=== PATIENT | male | born 1945 | race African-American/Black ===

== ENCOUNTER 2021-05-05 09:11 | Emergency (ER) | payer MEDICARE ==
[~2021-05-05] VITALS: Ht 180.3 cm; Wt 95.3 kg
[2021-05-05] MEDS ORDERED: MECLIZINE HCL 12.5 MG TAB PO ONE (09:45)
[2021-05-05] MEDS ORDERED: SODIUM CHLORIDE 0.9% 1000ML 1,000 ML ONE (09:45)
[2021-05-05] MEDS ORDERED: MECLIZINE HCL 12.5 MG TAB ONE (10:04)
[2021-05-05 11:02] LABS: HEMATOCRIT 43.6 % (38.2-49.6); HEMOGLOBIN 14.2 g/dL (14.0-18.0); MEAN CORPUSCULAR HEMOGLOBIN 28.7 pg (28-32); MEAN CORPUSCULAR HGB CONC 32.6 g/dL (31-35); MEAN CORPUSCULAR VOLUME 88.3 fL (81-99); PLATELET COUNT 246 x10e3/uL (140-360); RED BLOOD COUNT 4.94 x10e6/uL (4.3-5.7); RED CELL DISTRIBUTION WIDTH 12.6 % (11.7-14.4)
[2021-05-05] MEDS ORDERED: MECLIZINE HCL12.5 MG PO (11:43)
[2021-05-05 11:50] VITALS: BP 153/95
[2021-05-05 13:13] LABS: LYMPHOCYTES % (MANUAL) 21 % (19-48); MONOCYTES % (MANUAL) 4 % (3.4-9.0); NEUTROPHILS % (MANUAL) 75 % (40-74); PLATELET ESTIMATE ADEQUATE; PLATELET MORPHOLOGY COMMENT NORMAL; RBC MORPHOLOGY COMMENT NORMAL
== END 2021-05-05 11:52 | disposition home or self-care (01) ==
LOC: FSED 09:35
DX: R42 Dizziness and giddiness (principal); R11.2 Nausea with vomiting, unspecified; I10 Essential (primary) hypertension; E78.5 Hyperlipidemia, unspecified
CPT/HCPCS: 36415; 70450; 80053; 82553; 84484; 85007; 85025; 85027; 99283; J8597; 93005